=== PATIENT | male | born 1970 | race African-American/Black ===

== ENCOUNTER 2018-07-29 17:07 | Emergency (ER) | payer OTHER ==
[~2018-07-29] VITALS: Ht 195.6 cm; Wt 72.6 kg
[2018-07-29 17:37] VITALS: BP 130/82
[2018-07-29] MEDS ORDERED: FLUORESCEIN OPHTH TEST STRIP. OD ONE (18:30)
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
[2018-07-29] MEDS ORDERED: HYDR-3164 PO (19:11)
[2018-07-29] MEDS ORDERED: ERYT1OIN6 OP (19:11)
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
== END 2018-07-29 20:19 | disposition home or self-care (01) ==
LOC: ER 17:07
DX: S02.31XA Fracture of orbital floor, right side, initial encounter for closed fracture (principal); S02.2XXA Fracture of nasal bones, initial encounter for closed fracture; S05.01XA Injury of conjunctiva and corneal abrasion without foreign body, right eye, initial encounter; F17.200 Nicotine dependence, unspecified, uncomplicated; Y04.2XXA Assault by strike against or bumped into by another person, initial encounter; Y93.89 Activity, other specified; Y92.89 Other specified places as the place of occurrence of the external cause; Y99.8 Other external cause status
CPT/HCPCS: 70450; 70486; 99284-25

== ENCOUNTER 2021-02-11 13:35 | Emergency (ER) | payer SELFPAY ==
[~2021-02-11] VITALS: Ht 195.6 cm; Wt 72.0 kg
[~2021-02-11 13:35] MED LIST: ERYT1OIN6 OP; HYDR-3164 PO
--- NOTE | 2021-02-11 15:30 | PHYS DOC ---
Past Medical History Past Medical History: No Pertinent History Past Surgical History: No Surgical History Smoking Status: Current Every Day Smoker Alcohol Use: Rarely Drug Use: None General Adult EDM: Chief Complaint: BACK PAIN OR INJURY HPI: HPI: Patient is a 50 year old male presents to the emergency department with 1 month history of low center back pain that he rates a 4 out of 10. Patient reports he was changing the brakes on his car and twisted funny and had a sharp sudden onset of pain in the middle of his low back with pain shooting down his right l eg into his foot. Patient denies any loss of bowel or bladder continence, denies any urinary retention. Patient reports he originally injured his back in 2001 and a blunt trauma accident while he was at work, and then again in 2011 with a fall, patient reports he was recommended he have a fusion of his lumbar spine however he is not sure which bones, patient states he refused the surgery. Patient denies any numbness to his buttocks or groin area, states there is no pain currently shooting down his right leg reporting that it is intermittent while he walks or moves about. Patient reports he takes [id number] Motrin and this seems to help if he takes it right before he goes to bed however does not seem to help throughout the day. Patient states he does not have a primary care physician, has no allergies to medications, takes no prescription medications. Denies a surgical history. Patient does state he has a history of scoliosis that he has had since he was a child. Patient reports being told he had bulging disks in his low back. Patient states he has not seek any medical care since his onset of back pain a month ago. Review of Systems: Review of Systems: 14 body systems of review of systems have been reviewed. See HPI for pertinent positives and negative responses, otherwise all other systems are negative, nonpertinent or noncontributory. Constitutional: Negative except as outlined in HPI above. Skin: Negative except as outlined in HPI above. Eyes: Negative except as outlined in HPI above. HENT: Negative except as outlined in HPI above. Respiratory: Negative except as outlined in HPI above. Cardiovascular: Negative except as outlined in HPI above. GI: Negative except as outlined in HPI above. : Negative except as outlined in HPI above. Musculoskeletal: Negative except as outlined in HPI above. Integument: Negative except as outlined in HPI above. Neurologic: Negative except as outlined in HPI above. Endocrine: Negative except as outlined in HPI above. Lymphatic: Negative except as outlined in HPI above. Psychiatric: Negative except as outlined in HPI above. Heart Score: C/O Chest Pain: No Risk Factors: Risk Factors: DM, Current or recent (<one month) smoker, HTN, HLP, family history of CAD, obesity. Risk Scores: Score 0 - 3: 2.5% MACE over next 6 weeks - Discharge Home Score 4 - 6: 20.3% MACE over next 6 weeks - Admit for Clinical Observation Score 7 - 10: 72.7% MACE over next 6 weeks - Early Invasive Strategies Allergies: Allergies: Allergies Coded Allergies Type Severity Reaction Last Updated Verified No Known Drug Allergies 07/29/18 No Physical Exam: PE: Constitutional: Well developed, well nourished, no acute distress, non-toxic a ppearance. 42-year-old male in no apparent distress. HENT: Normocephalic, atraumatic. Eyes: Conjunctiva normal, no discharge. Neck: Normal range of motion, no stridor. Cardiovascular: No cyanosis appreciated, distal cap refill less than 2 seconds. Lungs & Thorax: Patient is in no respiratory distress, no audible adventitious lung sounds appreciated. Abdomen: Nontender, no abnormalities noted. Skin: Warm, dry, no erythema, no rash. Back: Tenderness to central lumbar spine area, no tenderness to palpation to the left or right of the lumbar spine, no deformities appreciated, no ecchymosis or skin discoloration appreciated, no swelling or edema appreciated. Extremities: No tenderness, no cyanosis, no clubbing, ROM intact, no edema. Distal cap refill less than 2 seconds, 2+ dorsalis pedis/posterior tibial pulses bilaterally. Neurologic: Alert and oriented X 3, normal motor function, normal sensory function, no focal deficits noted. Psychologic: Affect normal, judgement normal, mood normal. EKG: EKG: [] Radiology/Procedures: Radiology/Procedures: PATIENT: EBENEZER WEBSTER LACCOUNT: [id number] : 1970 LOCATION: ER AGE: 50 SEX: M EXAM STATUS: REG ER ORD. PHYSICIAN: KELLIE ROGERS APRN REASON: severe low back spine pain, hx buldging disc, scoliosis PROCEDURE: CT LUMBAR SPINE WO CONTRAST CT lumbar spine without contrast. HISTORY: Severe low back pain Axial CT images were obtained through the lumbar spine. Sagittal and coronal reconstructed images were reviewed. Visualized lung bases are clear. There is no aortic aneurysm. Bladder is mildly distended. The T12-L1, L1-2, L2-3, L3-4 and L4-5 discs are unremarkable without spinal stenosis or foraminal stenosis or focal disc protrusion. There is a focal disc protrusion central to the right at L5-S1. There is mild a ttenuation of the thecal sac at the lateral recess on the right from the disc protrusion. There is no significant scoliosis. There is no acute lumbar fracture. IMPRESSION: 1. Right disc protrusion at L5-S1 PQRS Compliance Statement: One or more of the following individualized dose reduction techniques were utilized for this examination: 1. Automated exposure control 2. Adjustment of the mA and/or kV according to patient size 3. Use of iterative reconstruction technique Electronically signed by: Chanel Vicente MD (02/11/2021 4:14 PM) [facility] DICTATED and SIGNED BY: CHANEL VICENTE MD DATE: 02/11/21 [id number] 0 Course & Med Decision Making: Course & Med Decision Making Pertinent Labs and Imaging studies reviewed. (See chart for details) 50-year-old male, vital signs reviewed, presents to the emergency department with complaint of low back pain for the past month after twisted funny while changing the brakes in his car. Patient does have a history of bulging disks, and injury in 2001 and again in 2011, was recommended he had spinal fusion, patient reports intermittent pain shooting down his right leg with intermittent foot numbness however no lower extremity pain or numbness at today's ED visit. With patient's history of disc disease will order CT L-spine, physical examination and presentation consistent with sciatica, will order IM Depo- Medrol, IM Toradol, 1 p.o. [place], will reevaluate patient after period of time. CT reports L5/S1 disc protrusion to the right, reviewed this finding with patient, patient states he has been told this in the past, patient states that the medications given are helping him and he started to feel better, recommended patient follow-up with a primary care physician for ongoing evaluation of his protruding disc and pain management, will provide a list of PCP clinics at discharge time, will order Motrin and Flexeril for ongoing pain. Patient gave verbal understanding of discharge home instructions, follow-up with PCP this week, return to ER precautions and concerns, prescription medication use, patient is hemodynamically stable, in no apparent distress, is nontoxic at discharge time, patient was discharged home without incident. Dragon Disclaimer: Dragon Disclaimer: This electronic medical record was generated, in whole or in part, using a voice recognition dictation system. Departure Departure Impression: Primary Impression: Disc disorder of lumbar region Additional Impressions: Low back pain Qualified Codes: M54.41 - Lumbago with sciatica, right side; G89.29 - Other chronic pain Abnormal CT scan, lumbar spine Disposition: 01 HOME / SELF CARE / HOMELESS Condition: GOOD Referrals: NO PCP (PCP) Patient Instructions: Back Pain, Adult Additional Instructions: You were seen today in the emergency department for low back pain after twisting funny while changing your breaks a month ago. A CT of your lumbar spine revealed a protruding disc of your L5/S1 to the right side, you have reported you are aware this from an old back injury from 2001, I recommend you follow-up with a primary care physician for ongoing management of your protruding disc and pain symptoms, you have stated you do not have a primary care physician, I have provided you a list of family clinics attached to your discharge instructions, please consider seeing a primary care physician this week, I am prescribing you ibuprofen and Flexeril for pain and discomfort, please use as directed. Thank you for visiting our Emergency Department. It was a pleasure taking care of you today in the emergency department and we appreciate you trusting us with your care. If any additional problems come up don't hesitate to return to visit us. Please follow up with your primary care provider so they can plan additional care if needed and know about the problem that you had. If symptoms worsen come back to the Emergency Department. Any concerning symptoms that start such as chest pain, shortness of air, weakness or numbness on one side of the body, r unning high fevers or any other concerning symptoms return to the ER. EMERGENCY DEPARTMENT GENERAL DISCHARGE INSTRUCTIONS Thank you for coming to [facility] Emergency Department (ED) today and trusting us with you care. We trust that you had a positive experience in our Emergency Department. If you wish to speak to the department management, you may call the Director at [phone]. YOUR FOLLOW UP INSTRUCTIONS ARE FOLLOWS: 1. Do you have a private Doctor? If you do not have a private doctor, please ask for a resource list of physicians or clinics that may be able to assist you with follow up care. 2. The Emergency Physicain has interpreted your x-rays. The X-Ray specialist will also review them. If there is a change in the findings, you will be notified in 48 hours when at all possible. 3. A lab test or culture has been done, your results will be reviewed and you will be notified if you need a change in treatment. ADDITIONAL INSTRUCTIONS AND INFORMATION: 1. Your care today has been supervised by a physician who is specially trained in emergency care. Many problems require more than one evaluation for a complete diagnosis and treatment. We recommend that you schedule your follow up appointment as recommended to ensure complete treatment of you illness or injury. If you are unable to obtain follow up care and continue to have a problem, or if your condition worsens, we recommend that you return to the ED. 2. We are not able to safely determine your condition over the phone nor are we able to give sound medical advice over the phone. For these safety reasons, if you call for medical advice we will ask you to come to the ED for further evaluation. 3. If you have any questions regarding these discharge instructions please call the ED at [phone]. SAFETY INFORMATION: In the interest of safety, wellness, and injury prevention; we encourage you to wear your sealbelt, if you smoke; quite smoking, and we encourage family to use a protective helmet for bicycling and other sporting events that present an increased risk for head injury. IF YOUR SYMPTOMS WORSEN OR NEW SYMPTOMS DEVELOP, OR YOU HAVE CONCERNS ABOUT YOUR CONDITION; OR IF YOUR CONDITION WORSENS WHILE YOU ARE WAITING FOR YOUR FOLLOW UP APPOINTME NT; EITHER CONTACT YOUR PRIMARY CARE DOCTOR, THE PHYSICIAN WHOSE NAME AND NUMBER YOU WERE GIVEN, OR RETURN TO THE ED IMMEDIATELY. Scripts Cyclobenzaprine Hcl (CYCLOBENZAPRINE HCL) 10 Mg Tablet 10 MG PO TID for low back spasms, #15 TAB 0 Refills Prov: KELLIE ROGERS [employer]PER[employer] 02/11/21 Ibuprofen (IBUPROFEN) 600 Mg Tablet 600 MG PO PRN Q6HRS PRN for INFLAMMATION, #30 TAB 0 Refills Prov: KELLIE ROGERS APRN 02/11/21 KELLIE ROGERS APRN Feb 11, 2021 15:30
[2021-02-11] MEDS ORDERED: HYDROcodone/APAP 5/325MG 1 TAB TABLET PO ONE (16:00)
[2021-02-11] MEDS ORDERED: KETOROLAC 60 MG/2 ML VIAL. IM ONE (16:00)
[2021-02-11] MEDS ORDERED: methylPREDNISolone ACETATE 80 MG/ML VIAL. IM ONE (16:00)
--- NOTE | 2021-02-11 16:16 | RAD ---
CT lumbar spine without contrast. HISTORY: Severe low back pain Axial CT images were obtained through the lumbar spine. Sagittal and coronal reconstructed images wer e reviewed. Visualized lung bases are clear. There is no aortic aneurysm. Bladder is mildly distended . The T12-L1, L1-2, L2-3, L3-4 and L4-5 discs are unremarkable without spinal stenosis or foraminal s tenosis or focal disc protrusion. There is a focal disc protrusion central to the right at L5-S1. There is mild attenuation of the thec al sac at the lateral recess on the right from the disc protrusion. There is no significant scoliosis . There is no acute lumbar fracture. IMPRESSION: 1. Right disc protrusion at L5-S1 PQRS Compliance Statement: One or more of the following individualized dose reduction techniques were utilized for this examinat ion: 1. Automated exposure control 2. Adjustment of the mA and/or kV according to patient size 3. Use of iterative reconstruction technique Electronically signed by: Alonso Jackson MD (02/11/2021 4:14 PM) [facility]
[2021-02-11 16:18] VITALS: BP 147/85
[2021-02-11] MEDS ORDERED: IBUP-1007 PO (16:46)
[2021-02-11] MEDS ORDERED: CYCL10TA2 PO (16:46)
== END 2021-02-11 17:34 | disposition home or self-care (01) ==
LOC: ER 13:35
DX: M54.41 Lumbago with sciatica, right side (principal); G89.29 Other chronic pain; F17.200 Nicotine dependence, unspecified, uncomplicated; R94.8 Abnormal results of function studies of other organs and systems
CPT/HCPCS: 72131; 96372; 99284; J1040; J1885